=== PATIENT | male | born 1960 | race Caucasian/White ===

== ENCOUNTER 2018-09-15 08:26 | Outpatient (REF) | payer OTHER, SELFPAY ==
[2018-09-15 12:30] LABS: ALT 39 U/L (12-78); AST 29 U/L (15-37); Calculated LDL 117 mg/dL; Cholesterol 211 mg/dL (50-200); Glucose 100 mg/dL (70-100); HDL Cholesterol 74 mg/dL (40-60); Triglyceride 104 mg/dL (30-150)
[2018-09-15 12:45] LABS: Creatine Kinase 142 U/L (39-308)
== END 2018-09-15 08:46 ==
LOC: NCHCN 08:26
PROVIDERS: PCP Nurse Practitioner Family; Visit Provider Nurse Practitioner Family
DX: Z00.00 Encounter for general adult medical examination without abnormal findings (principal); E78.5 Hyperlipidemia, unspecified; I10 Essential (primary) hypertension; R73.03 Prediabetes; L30.9 Dermatitis, unspecified
CPT/HCPCS: 80061; 82550; 82947; 83721; 84450; 84460

== ENCOUNTER 2019-01-27 08:39 | Outpatient (REF) | payer OTHER, SELFPAY ==
[2019-01-27 20:58] LABS: ALT 39 U/L (16-63); AST 23 U/L (15-37); Anion Gap 8.6 mmol/L (3-11); BUN 13 mg/dL (7-18); CO2 29.4 mmol/L (21.0-32.0); CREATININE 0.69 mg/dL (0.70-1.30); Chloride 100 mmol/L (98-107); Glucose 99 mg/dL (70-100); HDL Cholesterol 70 mg/dL (40-60); LDL CHOLESTEROL 93 mg/dL (<100); Potassium 3.8 mmol/L (3.5-5.1); Sodium 138 mmol/L (136-145)
[2019-01-27 21:25] LABS: Creatine Kinase 163 U/L (39-308)
== END 2019-01-27 08:59 ==
LOC: NCHCN 08:39
PROVIDERS: PCP Nurse Practitioner Family; Visit Provider Nurse Practitioner Family
DX: I10 Essential (primary) hypertension (principal)
CPT/HCPCS: 80048; 82550; 83721; 83718; 84450; 84460

== ENCOUNTER 2019-10-25 08:57 | Outpatient (RCR) | payer OTHER, SELFPAY | END 2019-11-14 23:59 | disposition home or self-care (01) | LOC: INF 08:57 | PROVIDERS: PCP Nurse Practitioner Family; Visit Provider Internal Medicine | DX: C79.19 Secondary malignant neoplasm of other urinary organs (principal); Z45.2 Encounter for adjustment and management of vascular access device ==

== ENCOUNTER 2020-01-18 08:28 | Outpatient (REF) | payer OTHER, SELFPAY ==
[2020-01-18 21:19] LABS: ALT 31 U/L (16-63); AST 24 U/L (15-37); Anion Gap 10.2 mmol/L (3-11); BUN 12 mg/dL (7-18); CO2 26.8 mmol/L (21.0-32.0); CREATININE 0.79 mg/dL (0.70-1.30); Calcium 9.2 mg/dL (8.5-10.1); Calculated LDL 110 mg/dL (<100); Chloride 99 mmol/L (98-107); Cholesterol 206 mg/dL (<200); Glucose 107 mg/dL (74-106); HDL Cholesterol 78 mg/dL (40-60); Potassium 3.6 mmol/L (3.5-5.1); Sodium 136 mmol/L (136-145); Triglyceride 93 mg/dL (<150)
[2020-01-18 21:35] LABS: Creatine Kinase 172 U/L (39-308)
== END 2020-01-18 08:48 ==
LOC: NCHCN 08:28
PROVIDERS: PCP Nurse Practitioner Family; Visit Provider Nurse Practitioner Family
DX: Z00.00 Encounter for general adult medical examination without abnormal findings (principal)
CPT/HCPCS: 80048; 80061; 82550; 84450; 84460

== ENCOUNTER 2021-02-25 08:30 | Outpatient (REF) | payer OTHER, SELFPAY ==
[2021-02-25 18:45] LABS: Anion Gap 7.7 mmol/L (3-11); BUN 15 mg/dL (7-18); CO2 29.3 mmol/L (21.0-32.0); CREATININE 0.8 mg/dL (0.70-1.30); Calcium 9.3 mg/dL (8.5-10.1); Calculated LDL 107 mg/dL (<100); Chloride 100 mmol/L (98-107); Cholesterol 197 mg/dL (<200); Glucose 109 mg/dL (74-106); HDL Cholesterol 73 mg/dL (40-60); Potassium 3.9 mmol/L (3.5-5.1); Sodium 137 mmol/L (136-145); Triglyceride 88 mg/dL (<150)
== END 2021-02-25 08:31 | disposition home or self-care (01) ==
LOC: NCHCN 08:30
PROVIDERS: PCP Nurse Practitioner Family; Visit Provider Nurse Practitioner Family
DX: I10 Essential (primary) hypertension (principal); E78.5 Hyperlipidemia, unspecified
CPT/HCPCS: 80048; 80061

== ENCOUNTER 2022-03-03 14:01 | Outpatient (REF) | payer OTHER, SELFPAY ==
[2022-03-03 16:53] LABS: Hemoglobin A1C 6.1 % (<5.7)
[2022-03-03 16:59] LABS: ALT 30 U/L (16-63); AST 23 U/L (15-37); Albumin 4.2 g/dL (3.4-5.0); Alkaline Phosphatase 44 U/L (46-116); BUN 16 mg/dL (7-18); Bilirubin, Total 0.5 mg/dL (0.2-1.0); CREATININE 0.7 mg/dL (0.70-1.30); Calcium 9.7 mg/dL (8.5-10.1); Chloride 101 mmol/L (98-107); Estimated GFR 106.14 (mL/min/1.73m2); Glucose 119 mg/dL (74-106); HDL Cholesterol 88 mg/dL (40-60); LDL CHOLESTEROL 106 mg/dL (<100); Potassium 4.4 mmol/L (3.5-5.1); Sodium 138 mmol/L (136-145); Total Protein 7.8 g/dL (6.4-8.2)
[2022-03-03 17:14] LABS: Anion Gap 7.3 mmol/L (3-11); CO2 29.7 mmol/L (21.0-32.0); Creatine Kinase 180 U/L (39-308)
== END 2022-03-03 14:02 | disposition home or self-care (01) ==
LOC: NCHCN 14:01
PROVIDERS: PCP Nurse Practitioner Family; Visit Provider Nurse Practitioner Family
DX: I10 Essential (primary) hypertension (principal); R73.03 Prediabetes; E78.5 Hyperlipidemia, unspecified; Z00.00 Encounter for general adult medical examination without abnormal findings
CPT/HCPCS: 80053; 82550; 83721; 83036; 83718

== ENCOUNTER 2023-03-02 11:40 | Outpatient (REF) | payer OTHER, SELFPAY ==
[2023-03-02 16:30] LABS: AST 19 U/L (15-37); Albumin 3.5 g/dL (3.4-5.0); Alkaline Phosphatase 48 U/L (46-116); BUN 10 mg/dL (7-18); Calcium 9.6 mg/dL (8.5-10.1); Chloride 100 mmol/L (98-107); Glucose 130 mg/dL (74-106); HDL Cholesterol 80 mg/dL (40-60); Potassium 4.1 mmol/L (3.5-5.1); Sodium 136 mmol/L (136-145); Total Protein 8.7 g/dL (6.4-8.2)
[2023-03-02 17:20] LABS: ALT 23 U/L (16-63); Bilirubin, Total 0.4 mg/dL (0.2-1.0); CREATININE 0.8 mg/dL (0.70-1.30); Estimated GFR 101.32 (mL/min/1.73m2); LDL CHOLESTEROL 107 mg/dL (<100)
[2023-03-02 17:44] LABS: Creatine Kinase 126 U/L (39-308)
== END 2023-03-02 11:41 | disposition home or self-care (01) ==
LOC: NCHCN 11:40
PROVIDERS: PCP Nurse Practitioner Family; Visit Provider Nurse Practitioner Family
DX: I10 Essential (primary) hypertension (principal); E78.5 Hyperlipidemia, unspecified
CPT/HCPCS: 80053; 82550; 83721; 83718

== ENCOUNTER 2023-03-18 15:37 | Outpatient (REF) | payer OTHER, SELFPAY ==
[2023-03-18 20:26] LABS: Hemoglobin A1C 6.1 % (<5.7)
== END 2023-03-18 15:38 | disposition home or self-care (01) ==
LOC: NCHCN 15:37
PROVIDERS: PCP Nurse Practitioner Family; Visit Provider Nurse Practitioner Family
DX: R73.03 Prediabetes (principal)
CPT/HCPCS: 83036

== ENCOUNTER 2023-10-05 08:56 | Outpatient (REF) | payer OTHER, SELFPAY ==
[2023-10-05 18:11] LABS: Hemoglobin A1C 6.2 % (<5.7)
[2023-10-06 18:57] LABS: PSA, Screening 0.3 ng/mL (<=4.5)
== END 2023-10-05 08:57 | disposition home or self-care (01) ==
LOC: NCHCN 08:56
PROVIDERS: PCP Physician Assistant Medical; Visit Provider Physician Assistant Medical
DX: R73.03 Prediabetes (principal); Z12.5 Encounter for screening for malignant neoplasm of prostate
CPT/HCPCS: 84153; 83036

== ENCOUNTER 2024-04-11 10:41 | Outpatient (REF) | payer OTHER, SELFPAY ==
[2024-04-11 16:47] LABS: Hemoglobin A1C 6.1 % (<5.7)
[2024-04-11 17:47] LABS: ALT 35 U/L (16-63); AST 21 U/L (15-37); Albumin 3.9 g/dL (3.4-5.0); Alkaline Phosphatase 45 U/L (46-116); Anion Gap 7.6 mmol/L (3-11); BUN 12 mg/dL (7-18); Bilirubin, Total 0.34 mg/dL (0.2-1.0); CO2 29.4 mmol/L (21.0-32.0); CREATININE 0.8 mg/dL (0.70-1.30); Calcium 9.9 mg/dL (8.5-10.1); Calculated LDL 89 mg/dL (<100); Chloride 103 mmol/L (98-107); Cholesterol 194 mg/dL (<200); Estimated GFR 100.06 (mL/min/1.73m2); Glucose 119 mg/dL (74-106); HDL Cholesterol 94 mg/dL (40-60); Potassium 4.2 mmol/L (3.5-5.1); Sodium 140 mmol/L (136-145); Total Protein 8.1 g/dL (6.4-8.2); Triglyceride 57 mg/dL (<150)
== END 2024-04-11 10:42 | disposition home or self-care (01) ==
LOC: NCHCN 10:41
PROVIDERS: PCP Physician Assistant Medical; Visit Provider Physician Assistant Medical
DX: E78.5 Hyperlipidemia, unspecified (principal); R73.03 Prediabetes
CPT/HCPCS: 80053; 80061; 83036

== ENCOUNTER 2024-07-05 18:12 | Inpatient (IN) | payer OTHER, SELFPAY ==
[2024-07-05 18:16] VITALS: BP 151/84; PULSE 98; RESP 18; TEMP 36.7; O2SAT 99
--- NOTE | 2024-07-05 19:30 | DI.CT_ITS ---
Exam(s) CT NECK CHEST W EXAM: CT NECK CHEST W CLINICAL HISTORY: esophageal food bolus TECHNIQUE: Imaging Protocol: Axial computed tomography images with coronal and sagittal reformatted images were created and reviewed. Computer aided detection (CAD) was utilized. CONTRAST MATERIAL: Intravenous: Omnipaque 350Contrast volume:100 mL. COMPARISON: No exams were available for comparison FINDINGS: Visualized intracranial structures: Within normal limits. Orbits and orbital soft tissues: Within normal limits. Visualized paranasal sinuses: There is mucosal thickening in the right maxillary sinus. There is al so thickening of the sheth of the right maxillary sinus. The findings are most suggestive of chronic sinusitis. The mastoid air cells are clear. The remaining visualized paranasal sinuses are clear. Pharynx: Within normal limits. Larynx: Within normal limits. Retropharyngeal space: Within normal limits. Parotids/submandibular: Within normal limits. Thyroid gland: Within normal limits. Lymphadenopathy: There is scattered lymph nodes seen along the level one to level three all measurin g less than 8 mm in short axis diameter which are physiologic in nature. Trachea: Within normal limits. Bones: Within normal limits for the patient's age. There is mild reversal of the normal cervical lord osis. Moderately severe degenerative changes are seen in the cervical spine. Carotids/Jugular: Within normal limits. Soft tissues: Within normal limits. Tracheobronchial tree: Patent where visualized. No evidence of bronchiectasis. No foreign bodies are seen in the airways. Pulmonary parenchyma: No consolidation or dominant measurable mass. No architectural distortion. Mild atelectasis is seen in the lungs. Mediastinum and Jojo: No dominant adenopathy or fluid collection. There may be some debris seen in th e distal esophagus. There is an air-fluid level present to the level of the thoracic inlet and aspir ation should be monitored. Thyroid gland: Unremarkable. Pleura: No effusion or pneumothorax. Heart: The heart is not dilated. Two vessel coronary artery calcification is present. No pericardial effusion. Aorta: Thoracic aorta non-dilated. Atherosclerotic calcification is present. Pulmonary arteries: Within the limits of the examination, no central pulmonary embolism is present. Upper abdomen: Unremarkable. Lymph nodes: Within normal limits. Bones: Within normal limits for the patient's age. Soft tissues: Unremarkable. IMPRESSION: 1. There does appear to be soft tissue debris in the distal esophagus suspicious for food bolus. 2. There is a fluid level in the esophagus to the level of the thoracic inlet and aspiration should b e monitored. 3. Findings of chronic sinusitis in the right maxillary sinus. 4. The preliminary [facility] report was reviewed. RADIATION DOSE DELIVERED: 394.18mGy.cm Total DLP !Error Total DLP DATA REPOSITORY: All CT scans at this facility are submitted to the National Radiology Data Registry (NRDR) Dose Index Registry (DIR) with the [employer] (ACR). RADIATION OPTIMIZATION: All CT scans at this facility use at least one of these dose optimization te chniques: automated exposure control; mA and/or kV adjustment per patient size (includes targeted exa ms where dose is matched to clinical indication); or iterative reconstruction.
[2024-07-05] MEDS: Glucagon 1 MG VIAL IVP (19:57)
[2024-07-05] MEDS: Simethicone/Sod Bicarb/Cit Ac, 4 gram PACKET 1 PACKET PO (19:57)
[2024-07-05 20:08] LABS: Abs Immature Grans 0.05 10^3/uL (0.0-0.06); Absolute Basophil Count 0.07 10^3/uL (0.0-0.2); Absolute Eosinophil Count 0.14 10^3/uL (0.0-0.7); Absolute Lymphocyte Count 1.24 10^3/uL (1.2-3.4); Absolute Monocyte Count 0.72 10^3/uL (0.1-0.8); Absolute Neutrophil Count 8.26 10^3/uL (1.2-6.7); Basophils % 0.7 %; Eosinophils % 1.3 %; HCT 40.1 % (40.0-50.0); HGB 13.8 g/dL (13.5-17.5); Immature Grans % 0.5 %; Lymphocytes % 11.8 %; MCH 30.7 pg (27.0-33.0); MCHC 34.4 % (32.0-36.0); MCV 89 fL (80-95); MPV 8.5 fL (8.0-11.0); Monocytes % 6.9 %; Neutrophils % 78.8 %; Platelet Count 267 10^3/uL (130-400); RBC 4.49 10^6/uL (4.36-5.78); RDW 11.8 % (11.8-14.1); RDW-SD 38.4 fL; WBC 10.48 10^3/uL (4.4-10.8)
[2024-07-05 20:26] LABS: ALT 32 U/L (16-63); AST 26 U/L (15-37); Albumin 4.2 g/dL (3.4-5.0); Alkaline Phosphatase 49 U/L (46-116); Anion Gap 8.7 mmol/L (3-11); BUN 10 mg/dL (7-18); Bilirubin, Total 0.6 mg/dL (0.2-1.0); CO2 27.3 mmol/L (21.0-32.0); CREATININE 0.8 mg/dL (0.70-1.30); Calcium 9.8 mg/dL (8.5-10.1); Chloride 101 mmol/L (98-107); Estimated GFR 100.06 (mL/min/1.73m2); Glucose 133 mg/dL (74-106); Potassium 3.2 mmol/L (3.5-5.1); Sodium 137 mmol/L (136-145); Total Protein 8.4 g/dL (6.4-8.2)
--- NOTE | 2024-07-05 21:00 | ED.GENADUL_ITS ---
Discharge Plan Disposition Patient Disposition: Admit to [facility] Condition: Stable Discharge Details Clinical Impression: Esophageal obstruction due to food impaction Primary Care Provider: Tony Jerez ED Provider: Ariel Cr Home Meds and New Rx's Prescriptions: No Action hydrochlorothiazide 50 MG tablet 0.5 tab PO DAILY simvastatin 10 MG tablet 10 mg PO DAILY triamcinolone acetonide 15 GM cream 0 gm Topical DIRECTED PRN lisinopril 10 MG tablet 10 mg PO DAILY hydrocodone-acetaminophen 1 EACH tablet 1 ea PO QID PRN PRN (Reason: Pain) Qty: 10 0RF HPI General Date/Time Provider Initiated Documentation: 07/05/24 18:50 . HPI Narrative: 64 year-old male presents to ED today by POV/ambulating with his with a chief complaint of esophageal food bolus, from his supper of chicken around 1630, has had prior episodes. Quality described as feels like he cannot swallow, was able to get a couple intermittent small sips of water down, but now is spitting everything back up, no radiation to cough, fever, chest pain, syncope, dizziness, hematemesis, coffee-ground emesis, abdominal pain, diarrhea. Severity is described as moderate. Palliating factors include tried Coca-Cola in the waiting room, no relief. Provoking factors include PO intake. Events leading up to the incident/Associated Symptoms: Patient is unsure if he has stricture or esophageal motility disorder. Patient not anticoagulated. Related Data Home Medications ?Medication ?Instructions ?Recorded ?Confirmed hydrochlorothiazide 50 mg tablet 0.5 tab PO DAILY 07/31/16 07/05/24 hydrocodone 5 mg-acetaminophen 325 1 ea PO QID PRN PRN Pain ##10 07/31/16 07/05/24 mg tablet lisinopril 10 mg tablet 10 mg PO DAILY 07/31/16 07/05/24 simvastatin 10 mg tablet 10 mg PO DAILY 07/31/16 07/05/24 triamcinolone acetonide 0.1 % 0 gm topical DIRECTED PRN 07/31/16 07/05/24 topical cream Previous Rx's ?Medication ?Instructions ?Recorded hydrocodone 5 mg-acetaminophen 325 1 ea PO QID PRN PRN Pain ##10 07/31/16 mg tablet Allergies Allergy/AdvReac Type Severity Reaction Status Date / Time Penicillins AdvReac Mild Skin Rash Unverified 07/05/24 18:17 General Stated Complaint: ForeignBody ALFONSO: 3 Review of Systems All systems reviewed & are unremarkable except as noted in HPI and below Exam Narrative Exam Narrative: GENERAL APPEARANCE: Well-nourished, non-toxic, awake and alert, atraumatic, no acute distress. SKIN: Warm, pink, dry, intact, without rashes/lesions/ulcerations. HEAD: Normocephalic, atraumatic, normal hair distribution for gender/age. EYES: Normal conjunctiva, no exudates on lids/lashes. ENT: Nares patent, no circumoral cyanosis, no facial swelling NECK: Supple, trachea midline, painless cervical ROM. LUNGS/CHEST: Lungs CTA bilaterally-no rhonchi/rales/wheezes diffusely, non- labored respirations, normal A/P diameter, symmetrical expansion, no chest wall deformity HEART (CV/PV): Regular rate and rhythm without murmur, no peripheral edema, no JVD. ABDOMEN: Soft, non-distended, no guarding, no tenderness. MSK: Normal ROM, no swelling/deformity to bilateral UEs or LEs, moving all extremities without weakness, no cyanosis, spine midline without tenderness, normal curvature. NEURO: Mental Status AAOx4 - alert to person, place, time, events No facial droop, no forehead involvement. Motor: No focal weakness - strength 5/5 in bilateral UEs and LEs, proximal and distal, symmetric. Sensory: sensation intact to light touch globally. Gait normal: patient ambulated without ataxia into ED room. PSYCH: euthymic, cooperative, pleasant, appropriate speech Course Vital Signs Vital signs: Vital Signs Temperature 36.7 C 07/05/24 18:16 Pulse 98 H 07/05/24 18:16 Respiratory Rate 18 07/05/24 18:16 Blood Pressure 151/84 H 07/05/24 18:16 Pulse Oximetry 99 07/05/24 18:16 Temperature 36.7 C 07/05/24 18:16 Pulse 98 H 07/05/24 18:16 Respiratory Rate 18 07/05/24 18:16 Respiratory Effort Normal, Non-Labored 07/05/24 20:38 Respiratory Pattern Normal 07/05/24 20:38 Blood Pressure 151/84 H 07/05/24 18:16 Pulse Oximetry 99 07/05/24 18:16 Lab/Test Results Lab/Test Results: Laboratory Tests Range/Units 07/05/24 19:57 WBC (4.4-10.8) 10^3/uL 10.48 RBC (4.36-5.78) 10^6/uL 4.49 Hgb (13.5-17.5) g/dL 13.8 Hct (40.0-50.0) % 40.1 MCV (80-95) fL 89 MCH (27.0-33.0) pg 30.7 MCHC (32.0-36.0) % 34.4 RDW (11.8-14.1) % 11.8 Plt Count (130-400) 10^3/uL 267 MPV (8.0-11.0) fL 8.5 Immature Gran % % 0.5 Neutrophils % % 78.8 Lymphocytes % % 11.8 Monocytes % % 6.9 Eosinophils % % 1.3 Basophils % % 0.7 Nucleated RBC % (0.0-0.3) % 0.0 Absolute Neutrophils (1.2-6.7) 10^3/uL 8.26 H Absolute Lymphocytes (1.2-3.4) 10^3/uL 1.24 Absolute Monocytes (0.1-0.8) 10^3/uL 0.72 Absolute Eosinophils (0.0-0.7) 10^3/uL 0.14 Absolute Basophils (0.0-0.2) 10^3/uL 0.07 Sodium (136-145) mmol/L 137 Potassium (3.5-5.1) mmol/L 3.2 L Chloride (98-107) mmol/L 101 Carbon Dioxide (21.0-32.0) mmol/L 27.3 Anion Gap (3-11) mmol/L 8.7 BUN (7-18) mg/dL 10 Creatinine (0.70-1.30) mg/dL 0.8 Est GFR (CKD-EPI 2020) (mL/min/1.73m2) 100.06 Glucose (74-106) mg/dL 133 H Calcium (8.5-10.1) mg/dL 9.8 Total Bilirubin (0.2-1.0) mg/dL 0.6 AST (15-37) U/L 26 ALT (16-63) U/L 32 Alkaline Phosphatase (46-116) U/L 49 Total Protein (6.4-8.2) g/dL 8.4 H Albumin (3.4-5.0) g/dL 4.2 Medical Decision Making This dictation utilizes [id number] dictation software and may contain unedited grammatical errors. 64 year-old male presents to ED today by POV/ambulating with his with a chief complaint of esophageal food bolus, from his supper of chicken around 1630, has had prior episodes. Quality described as feels like he cannot swallow, was able to get a couple intermittent small sips of water down, but now is spitting everything back up, no radiation to cough, fever, chest pain, syncope, dizziness, hematemesis, coffee-ground emesis, abdominal pain, diarrhea. Severity is described as moderate. Palliating factors include tried Coca-Cola in the waiting room, no relief. Provoking factors include PO intake. Events leading up to the incident/Associated Symptoms: Patient is unsure if he has stricture or esophageal motility disorder. Patients' medical history: Hyperlipidemia, hypertension, dental caries, prediabetes, amputated finger. Family and social history: Lives at home with , eats normal diet. Pertinent exam findings / vital signs include Lungs CTA, no respiratory distress, stable vitals, benign cardiac exam, cannot tolerate PO. Differential / pathologies of concern include esophageal food bolus, esophageal stricture, malignancy, gastritis. Diagnostic studies of: -CBC, CMP, CT Neck & Chest w/ Contrast. - CBC and CMP benign - CT shows distal esophageal food bolus obstruction Interventions of: - Attempted Coca-Cola, p.o. EZ gas granules, IV 1 mg glucagon without relief, likely needs consult with surgery for endoscopy. ED Course/Assessment/Plan: 64-year-old male presents with recurrent esophageal food bolus but has been able to get it to clear in the past, failed attempts here with Coca-Cola to dissolve the bolus as well as IV glucagon. CT shows significant distal esophagus food bolus that is fully obstructing, patient has not been able to tolerate p.o. intake for hours here, likely needs endoscopy only, reasonable for surgical abdomen, hospitalist declined as there is no intervention hospital medicine needs to make. Dr. Tamez accepted for admission @ 2234, patient is resting comfortably but unable to tolerate p.o. intake here in the ED. Findings not consistent with intractable nausea or vomiting, hematemesis, Denisa-Kumar tear, Boerhaave syndrome. Disposition of Esophageal Obstruction due to Food Impaction. Patient verbalized understanding of the plan and return to ED criteria and engaged in shared decision making. Medical Records Medical records reviewed: Yes I reviewed the patient's medical records. Imaging Data Radiologic Study: Attestation: I personally reviewed and interpreted this imaging study as follows: Imaging: CT Scan Radiologist's impression: Exam: CT Neck With Contrast Exam date and time: 07/05/2024 9:11 PM Age: 64 years old Clinical indication: Other: Esophageal food bolus TECHNIQUE: Imaging protocol: Computed tomography of the neck with contrast. 3D rendering (Not supervised by radiologist): MIP and/or 3D reconstructed images were created by the technologist. Contrast material: OMNI 350; Contrast volume: 100 ml; Contrast route: INTRAVENOUS (IV); COMPARISON: No relevant prior studies available. FINDINGS: Salivary glands: Normal. Glands are normal in size. Pharynx: Unremarkable. No significant tonsillar enlargement. Larynx: Unremarkable. Epiglottis is normal. Thyroid: Normal. No enlarged or calcified nodules. Trachea: Visualized trachea is unremarkable. Lungs: Unremarkable as visualized. Esophagus: Air debris level in minimally dilated proximal thoracic esophagus. Lymph nodes: Unremarkable. No lymphadenopathy. Bones/joints: Degenerative changes of cervical spine. Soft tissues: Unremarkable. IMPRESSION: Air debris level in minimally dilated proximal thoracic esophagus. PROCEDURE INFORMATION: Exam: CT Chest With Contrast; Diagnostic Exam date and time: 07/05/2024 9:11 PM Age: 64 years old Clinical indication: Other: Esophageal food bolus TECHNIQUE: Imaging protocol: Diagnostic computed tomography of the chest with contrast. 3D rendering (Not supervised by radiologist): MIP and/or 3D reconstructed images were created by the technologist. Contrast material: OMNI 350; Contrast volume: 100 ml; Contrast route: INTRAVENOUS (IV); COMPARISON: No relevant prior studies available. FINDINGS: Lungs: Unremarkable. No consolidation. No masses. Pleural spaces: Unremarkable. No pneumothorax. No pleural effusion. Heart: Unremarkable. No cardiomegaly. No pericardial effusion. Coronary arteries: Coronary artery calcification Esophagus: Soft tissue attenuation measuring approximately 2 cm in diameter and 4 cm in length minimally distends distal thoracic esophagus, 9/45, 4/92-118. Air debris level is demonstrated more proximally in thoracic esophagus. Lymph nodes: Unremarkable. No enlarged lymph nodes. Vasculature: Unremarkable. No aortic aneurysm. Liver: There is diffuse decrease in hepatic parenchymal density, consistent with mild fatty infiltration. Bones/joints: The spine demonstrates mild degenerative changes at multiple levels. No acute fracture. Soft tissues: Unremarkable. IMPRESSION: 1. Soft tissue attenuation consistent with food bolus in distal esophagus. 2. Coronary artery disease. Dictated and Authenticated by: Fidel Rodrigez MD. Lab Data Lab results reviewed: Yes I reviewed the patient's lab results. Labs: Laboratory Tests Range/Units 07/05/24 19:57 WBC (4.4-10.8) 10^3/uL 10.48 RBC (4.36-5.78) 10^6/uL 4.49 Hgb (13.5-17.5) g/dL 13.8 Hct (40.0-50.0) % 40.1 MCV (80-95) fL 89 MCH (27.0-33.0) pg 30.7 MCHC (32.0-36.0) % 34.4 RDW (11.8-14.1) % 11.8 Plt Count (130-400) 10^3/uL 267 MPV (8.0-11.0) fL 8.5 Immature Gran % % 0.5 Neutrophils % % 78.8 Lymphocytes % % 11.8 Monocytes % % 6.9 Eosinophils % % 1.3 Basophils % % 0.7 Nucleated RBC % (0.0-0.3) % 0.0 Absolute Neutrophils (1.2-6.7) 10^3/uL 8.26 H Absolute Lymphocytes (1.2-3.4) 10^3/uL 1.24 Absolute Monocytes (0.1-0.8) 10^3/uL 0.72 Absolute Eosinophils (0.0-0.7) 10^3/uL 0.14 Absolute Basophils (0.0-0.2) 10^3/uL 0.07 Sodium (136-145) mmol/L 137 Potassium (3.5-5.1) mmol/L 3.2 L Chloride (98-107) mmol/L 101 Carbon Dioxide (21.0-32.0) mmol/L 27.3 Anion Gap (3-11) mmol/L 8.7 BUN (7-18) mg/dL 10 Creatinine (0.70-1.30) mg/dL 0.8 Est GFR (CKD-EPI 2020) (mL/min/1.73m2) 100.06 Glucose (74-106) mg/dL 133 H Calcium (8.5-10.1) mg/dL 9.8 Total Bilirubin (0.2-1.0) mg/dL 0.6 AST (15-37) U/L 26 ALT (16-63) U/L 32 Alkaline Phosphatase (46-116) U/L 49 Total Protein (6.4-8.2) g/dL 8.4 H Albumin (3.4-5.0) g/dL 4.2 Quality:[facility] Health Related Social Needs: No Data to Display PFSH All Active Problems (Updated 07/05/24 @ 22:02 by LUCY Antonio) Esophageal obstruction due to food impaction (Acute) Sensorineural hearing loss of both ears (Acute) Social History Smoking/Tobacco Use Status: Never Smoking risk assessment performed?: Yes Alcohol Intake: current Alcohol Intake frequency: a few times a week Drug use: Never Substance use type: does not use Do you feel safe at home: Yes Do you feel safe in your relationship?: Yes PAWSS Have you Been Recently Intoxicated or Drunk Within the Last 30 days?: No Have you Ever Experienced Previous Episodes of Alcohol Withdrawal?: No Have you ever Experienced Withdrawal Seizures?: No Have you ever Experienced Delirium Tremens(DT)s?: No Have you ever undergone Alcohol Rehabilitation Treatment (i.e, inpt ot outpatient treatment programs)?: No Have you ever Experienced Blackouts?: No Have you ever Combined Alcohol with other Downers within the last 90 days?: No Have you ever Combined Alcohol with any other Substance of Abuse during the last 90 days?: No Positive Blood Alcohol level on Presentation? [PCS.BAL]: No Evidence of Increased Autonomic Activity (i.e. HR>120, tremor, sweating, agitation, nausea)?: No Result: 0
[2024-07-05] MEDS: Omnipaque 350 MG/ML 100 ML BTL IJ (21:14)
[2024-07-05] MEDS: Normal Saline - Diluent 50 ML VIAL IJ (21:16)
--- NOTE | 2024-07-05 21:58 | DI.[facility]_ITS ---
PROCEDURE INFORMATION: Exam: CT Neck With Contrast Exam date and time: 07/05/2024 9:11 PM Age: 64 years old Clinical indication: Other: Esophageal food bolus TECHNIQUE: Imaging protocol: Computed tomography of the neck with contrast. 3D rendering (Not supervised by radiologist): MIP and/or 3D reconstructed images were created by the technologist. Contrast material: OMNI 350; Contrast volume: 100 ml; Contrast route: INTRAVENOUS (IV); COMPARISON: No relevant prior studies available. FINDINGS: Salivary glands: Normal. Glands are normal in size. Pharynx: Unremarkable. No significant tonsillar enlargement. Larynx: Unremarkable. Epiglottis is normal. Thyroid: Normal. No enlarged or calcified nodules. Trachea: Visualized trachea is unremarkable. Lungs: Unremarkable as visualized. Esophagus: Air debris level in minimally dilated proximal thoracic esophagus. Lymph nodes: Unremarkable. No lymphadenopathy. Bones/joints: Degenerative changes of cervical spine. Soft tissues: Unremarkable. IMPRESSION: Air debris level in minimally dilated proximal thoracic esophagus. PROCEDURE INFORMATION: Exam: CT Chest With Contrast; Diagnostic Exam date and time: 07/05/2024 9:11 PM Age: 64 years old Clinical indication: Other: Esophageal food bolus TECHNIQUE: Imaging protocol: Diagnostic computed tomography of the chest with contrast. 3D rendering (Not supervised by radiologist): MIP and/or 3D reconstructed images were created by the technologist. Contrast material: OMNI 350; Contrast volume: 100 ml; Contrast route: INTRAVENOUS (IV); COMPARISON: No relevant prior studies available. FINDINGS: Lungs: Unremarkable. No consolidation. No masses. Pleural spaces: Unremarkable. No pneumothorax. No pleural effusion. Heart: Unremarkable. No cardiomegaly. No pericardial effusion. Coronary arteries: Coronary artery calcification Esophagus: Soft tissue attenuation measuring approximately 2 cm in diameter and 4 cm in length minimally distends distal thoracic esophagus, /45, 92-118. Air debris level is demonstrated more proximally in thoracic esophagus. Lymph nodes: Unremarkable. No enlarged lymph nodes. Vasculature: Unremarkable. No aortic aneurysm. Liver: There is diffuse decrease in hepatic parenchymal density, consistent with mild fatty infiltration. Bones/joints: The spine demonstrates mild degenerative changes at multiple levels. No acute fracture. Soft tissues: Unremarkable. IMPRESSION: 1. Soft tissue attenuation consistent with food bolus in distal esophagus. 2. Coronary artery disease. Dictated and Authenticated by: Fidel Rodrigez MD. Orderin Shaye George MD
[2024-07-06 00:37] VITALS: BP 153/90; PULSE 89; RESP 20; TEMP 36.6; O2SAT 99
[2024-07-06 00:50] VITALS: BP 133/95; PULSE 89; RESP 16; TEMP 36.5; O2SAT 98
[2024-07-06 00:55] VITALS: BP 133/95; PULSE 89; RESP 16; TEMP 36.5; O2SAT 98
[2024-07-06] MEDS: Normal Saline 1,000 ML 75 ML IV (01:10)
--- NOTE | 2024-07-06 01:58 | W.PC.ACHO ---
Registration Status: Primary Language: Preferred Language: ED Information & Data Chief Complaint ForeignBody 07/05/24 21:00 Triage Note Patient complaining of a 07/05/24 18:16 piece of chicken caught in his throat. Patient able to swallow a small amount of water Most Recent Vital Signs Temperature 36.5 C 07/06/24 00:55 Pulse 89 07/06/24 00:55 Pulse Rhythm Regular 07/06/24 00:55 Respiratory Rate 16 07/06/24 00:55 Respiratory Effort Normal, Non-Labored 07/06/24 00:55 Respiratory Depth Normal 07/06/24 00:55 Respiratory Pattern Normal 07/06/24 00:55 Blood Pressure 133/95 H 07/06/24 00:55 Pulse Oximetry 98 07/06/24 00:55 Oxygen Delivery Method Room Air 07/06/24 00:55 Oxygen Flow Rate 0 07/06/24 00:55 Pain Level 0 07/06/24 00:50 Comment map of 108 07/06/24 00:55 Allergies Penicillins Adverse Reaction (Mild, Unverified 07/05/24 18:17) Skin Rash Precautions Isolation Standard precaution 07/05/24 18:19 Active Medications Generic Name Dose Route Start Last Admin Trade Name Freq PRN Reason Stop Dose Admin Sodium Chloride 1,000 mls @ 75 mls/hr 07/05/24 23:45 07/06/24 01:10 Saline 1000ml Bag IV 75 mls/hr INFUSION STAR Administration Iohexol 100 ml 07/05/24 21:15 07/05/24 21:14 Omnipaque 350 Mg/Ml 100 Ml Btl IJ 08/04/24 23:59 100 ml DIRECTED STAR Administration Sodium Chloride 50 ml 07/05/24 21:30 07/05/24 21:16 Normal Saline - Diluent 50 Ml Vial IJ 50 ml .FOR DI USE STAR Administration IV IV Catheter Type [Right Peripheral IV Antecubital] IV Catheter Gauge [Right 18 Antecubital] Diet Orders Category Date Time Status Nothing Per Oral [DIET] Nutrition 07/05/24 Dinner Active Diagnostics 07/05/24 Range/Units 19:57 WBC 10.48 (4.4-10.8) 10^3/uL RBC 4.49 (4.36-5.78) 10^6/uL Hgb 13.8 (13.5-17.5) g/dL Hct 40.1 (40.0-50.0) % MCV 89 (80-95) fL MCH 30.7 (27.0-33.0) pg MCHC 34.4 (32.0-36.0) % RDW 11.8 (11.8-14.1) % Plt Count 267 (130-400) 10^3/uL MPV 8.5 (8.0-11.0) fL Immature Gran % 0.5 % Neutrophils % 78.8 % Lymphocytes % 11.8 % Monocytes % 6.9 % Eosinophils % 1.3 % Basophils % 0.7 % Nucleated RBC % 0.0 (0.0-0.3) % Absolute Neutrophils 8.26 H (1.2-6.7) 10^3/uL Absolute Lymphocytes 1.24 (1.2-3.4) 10^3/uL Absolute Monocytes 0.72 (0.1-0.8) 10^3/uL Absolute Eosinophils 0.14 (0.0-0.7) 10^3/uL Absolute Basophils 0.07 (0.0-0.2) 10^3/uL Sodium 137 (136-145) mmol/L Potassium 3.2 L (3.5-5.1) mmol/L Chloride 101 (98-107) mmol/L Carbon Dioxide 27.3 (21.0-32.0) mmol/L Anion Gap 8.7 (3-11) mmol/L BUN 10 (7-18) mg/dL Creatinine 0.8 (0.70-1.30) mg/dL Est GFR (CKD-EPI 2020) 100.06 (mL/min/1.73m2) Glucose 133 H (74-106) mg/dL Calcium 9.8 (8.5-10.1) mg/dL Total Bilirubin 0.6 (0.2-1.0) mg/dL AST 26 (15-37) U/L ALT 32 (16-63) U/L Alkaline Phosphatase 49 (46-116) U/L Total Protein 8.4 H (6.4-8.2) g/dL Albumin 4.2 (3.4-5.0) g/dL Intake and Output - 24 Hour Total 07/05/24 18:12 thru 07/06/24 01:10 Intake Total 10 Balance 10 Weight 69.853 kg Intake: IV 10 Falls Risk Assessment History of Falls No History 07/06/24 00:55 Contributing Factors No Factors,Impairments 07/06/24 00:55 Ambulatory Aids Independent 07/06/24 00:55 Tubes/Lines W/no contributing factors 07/06/24 00:55 Gait Evaluation No gait disturbance 07/06/24 00:55 Cognition No cognitive impairment 07/06/24 00:55 Fall Total Score 13 07/06/24 00:55 Level of Risk Standard/Low Risk 07/06/24 00:55 v v v v v v v v v Sending and/or Receiving Nurses: Please use comment section below to note any information pertinent to the patient hand-off not included above. Information / Comments: came in earlier in the day for what felt like food stuck in throat. Per exam pt has CAD. Tried coca cola, EZ gas, and glucagon. nothing has worked. surgeon looked at him and accepted for a morning procedure. Pt currently smokes daily, hx of HTN. pt has been afebrile. other than stuck food, pt is benign. 18g RAC npo Report received from: saúl Grubbs. @ [phone]
--- NOTE | 2024-07-06 02:09 | NUR.NOTE ---
Nursing Note: pt rang around 0200 endorsing that the piece of chicken has dislodged itself. Pt stated I was dosing off and boom, I felt it move. It went down, I am sure of it. Pt insisted on trying a sip of water, endorsing that he will know right away if the piece of food is gone or not. Pt is NPO, so I consulted with the charge nurse. We agreed to let him try approx. 50cc of water. Pt took the first sip and stated that he is sure the food is gone because all other times he tried to drink it (fluid) came back up immediately pt drank remaining water, nothing came back up. Pt informed that he will not receive anymore water right now and to keep staff informed of any nausea or emesis. Pt stated that he understands, and is very excited about this development.
--- NOTE | 2024-07-06 06:52 | ANES.PREOP_ITS ---
General Info Date of Service Date Performed: 07/06/24 Height: 5 ft 5 in Weight: 69.853 kg Body Mass Index (BMI): 25.6 Surgical Procedure: Operation Date: 07/06/24 07:35 Proposed Procedure Side Surgeon p Gastroscopy/Removal Foreign Body Bong Tamez MD Meds Allergies and Home Medications Allergies Allergy/AdvReac Type Severity Reaction Status Date / Time Penicillins AdvReac Mild Skin Rash Unverified 07/05/24 18:17 Home Medication ?Medication ?Instructions ?Recorded hydrochlorothiazide 50 mg tablet 0.5 tab PO DAILY 07/31/16 hydrocodone 5 mg-acetaminophen 325 1 ea PO QID PRN PRN Pain ##10 07/31/16 mg tablet lisinopril 10 mg tablet 10 mg PO DAILY 07/31/16 simvastatin 10 mg tablet 10 mg PO DAILY 07/31/16 triamcinolone acetonide 0.1 % 0 gm topical DIRECTED PRN 07/31/16 topical cream Current Visit Medications: Current Medications Generic Name Dose Route Start Last Admin Trade Name Freq PRN Reason Stop Dose Admin Enoxaparin Sodium 40 mg 07/06/24 08:30 Enoxaparin 40 Mg/0.4 Ml Syr SC DAILY STAR Sodium Chloride 1,000 mls @ 75 mls/hr 07/05/24 23:45 07/06/24 01:10 Saline 1000ml Bag IV 75 mls/hr INFUSION STAR Administration IV Miscellaneous Supplies 1 each 07/05/24 23:45 Iv Access IV DIRECTED STAR Iohexol 100 ml 07/05/24 21:15 07/05/24 21:14 Omnipaque 350 Mg/Ml 100 Ml Btl IJ 08/04/24 23:59 100 ml DIRECTED STAR Administration Ondansetron HCl 4 mg 07/05/24 23:35 Ondansetron 4 Mg/2 Ml Vial IVP Q4H PRN PRN Sodium Chloride 50 ml 07/05/24 21:30 07/05/24 21:16 Normal Saline - Diluent 50 Ml Vial IJ 50 ml .FOR DI USE STAR Administration Sodium Chloride 0 ml 07/05/24 23:35 Normal Saline Flush 10 Ml Syr IVP PRN PRN Sodium Chloride 0 ml 07/06/24 08:30 Normal Saline Flush 10 Ml Syr IVP BID STAR Sodium Chloride 0 ml 07/05/24 23:35 Normal Saline 10 Ml Vial IJ DIRECTED PRN PFSH Active Problems Active Problems: Problem Status Onset Code Esophageal obstruction due to food impaction Acute T18.128A, [id number].F3XA Sensorineural hearing loss of both ears Acute H90.3 Tobacco Smoking/Tobacco Use Status: Never Alcohol Alcohol Intake: current Alcohol intake frequency: a few times a week Substance Use Substance use: Never Substance use type: does not use Vital Signs and Lab Results Vital Signs Most Recent Vital Signs in EMR: Most Recent Vital Signs Temp Pulse Resp BP Pulse Ox 36.5 C 89 16 133/95 H 98 07/06/24 00:55 07/06/24 00:55 07/06/24 00:55 07/06/24 00:55 07/06/24 00:55 Lab Results 07/05/24 19:57 07/05/24 19:57 Blood Type / Crossmatch: 2 No Data to Display Complete Blood Count: 2 White Blood Count 10.48 10^3/uL (4.4-10.8) 07/05/24 19:57 Red Blood Count 4.49 10^6/uL (4.36-5.78) 07/05/24 19:57 Hemoglobin 13.8 g/dL (13.5-17.5) 07/05/24 19:57 Hematocrit 40.1 % (40.0-50.0) 07/05/24 19:57 Platelet Count 267 10^3/uL (130-400) 07/05/24 19:57 Complete Metabolic Panel: 2 Sodium 137 mmol/L (136-145) 07/05/24 19:57 Potassium 3.2 mmol/L (3.5-5.1) L 07/05/24 19:57 Chloride 101 mmol/L (98-107) 07/05/24 19:57 Carbon Dioxide 27.3 mmol/L (21.0-32.0) 07/05/24 19:57 BUN 10 mg/dL (7-18) 07/05/24 19:57 Creatinine 0.8 mg/dL (0.70-1.30) 07/05/24 19:57 Est GFR (CKD-EPI 2020) 100.06 (mL/min/1.73m2) 07/05/24 19:57 Calcium 9.8 mg/dL (8.5-10.1) 07/05/24 19:57 Albumin 4.2 g/dL (3.4-5.0) 07/05/24 19:57 Glucose 133 mg/dL (74-106) H 07/05/24 19:57 Liver Function Panel: 2 Alanine Aminotransferase (ALT/SGPT) 32 U/L (16-63) 07/05/24 19: 57 Aspartate Amino Transf (AST/SGOT) 26 U/L (15-37) 07/05/24 19:57 Coagulation Panel: 2 No Data to Display Cardiac Panel: 2 No Data to Display Arterial Blood Gas: 2 No Data to Display Venous Blood Gas: 2 No Data to Display Pancreas Panel: 2 No Data to Display Thyroid Panel: 2 No Data to Display Infectious Disease: 2 No Data to Display Blood Cultures: 2 No Data to Display Toxicology Panel: 2 No Data to Display Anesthesia Assessment and Plan Anesthesia History Personal History: No History of Anesthesia Complications Family History: No Family History of Anesthesia Complications Exercise Tolerance Exercise Tolerance: Metabolic Equivalents>4 Pertinent Negatives Pertinent Negatives: No Symptoms of GERD, No Major Pulmonary Symptoms or Complaints and No History of CVA/TIA Cardiac & Pulmonary Exam Cardiac Exam: Normal S1/S2 Heart Sounds Pulmonary Exam: Clear Bilateral Breath Sounds Airway Exam Known Difficult Airway: No Mallampati Class: 2 Mouth Opening: Normal (> 3cm) Thyromental Distance: Greater than 3 cm Neck Range of Motion: Full ROM Neck Circumference: Normal Teeth Condition: Normal Dentition ASA Classification ASA Score: ASA 2 Emergency Case?: Yes NPO Status NPO Status: Full Stomach Anesthesia Plan Resuscitation Status: Full Code Anesthesia Technique: General Anesthesia Airway Planned: Endotracheal Tube Monitors Used: Standard Monitors
--- NOTE | 2024-07-06 07:20 | NUR.NOTE ---
Spoke with OR secretary bookkeeper, patient does not want EGD scope this AM, had 50cc of water overnight to attempt to pass food body in throat/esophagus, and was successful. Patient feels well this AM, no n/v and feels as though the food body has passed. Wants to go home. Nursing Note:
--- NOTE | 2024-07-06 07:30 | NUR.NOTE ---
MD Limon saw pt at bedside, forgoing EGD today, f/u outpatient with gen sx for EGD to check motility issues, verbal okay from for clear liquids, pt to d/c to home todayNursing Note:
[2024-07-06 07:37] VITALS: BP 130/88; PULSE 81; RESP 16; TEMP 36.4; O2SAT 98
--- NOTE | 2024-07-06 08:05 | W.PM.HP.N ---
Date of service: 07/06/24 Time of Service: 08:05 Assessment and Plan Assessment and plan (1) Esophageal obstruction due to food impaction: Status: Acute Assessment and plan: Patient passing esophageal food bolus this morning. Will start the patient on clear liquid diet. Plan for discharge home if he is able to tolerate liquids. Will send him home on some Protonix. Plan for outpatient follow-up with surgeon for elective EGD in the future. (2) Hypertension: Status: Chronic Assessment and plan: He will resume his home medications upon discharge. 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 He has had this sensation in the past, usually with some time the food will pass and the sensation of pressure will be relieved. He ate some chicken yesterday, he indicates that he was probably eating this too fast and swallowed a large piece of food. Earlier this morning, he felt the food bolus passed and the sensation pressure drastically decreased. Review of Systems All systems reviewed & are unremarkable except as noted in HPI and below PFSH All Active Problems (Updated 07/06/24 @ 08:26 by Bong Tamez MD) Hypertension (Chronic) Esophageal obstruction due to food impaction (Acute) Sensorineural hearing loss of both ears (Acute) Social History Smoking/Tobacco Use Status: Never Smoking risk assessment performed?: Yes Alcohol Intake: current Alcohol Intake frequency: a few times a week Drug use: Never Substance use type: does not use Housing: house Do you feel safe at home: Yes Do you feel safe in your relationship?: Yes Meds Allergies and Home Medications Allergies Allergy/AdvReac Type Severity Reaction Status Date / Time Penicillins AdvReac Mild Skin Rash Unverified 07/05/24 18:17 Home Medications ?Medication ?Instructions ?Recorded ?Confirmed ?Type hydrochlorothiazide 50 mg tablet 0.5 tab PO DAILY 07/31/16 07/05/24 History lisinopril 10 mg tablet 10 mg PO DAILY 07/31/16 07/05/24 History triamcinolone acetonide 0.1 % 0 gm topical DIRECTED PRN 07/31/16 07/05/24 History topical cream simvastatin 20 mg tablet 20 mg PO QPM 07/06/24 07/06/24 History Exam Narrative Exam Narrative: Patient pleasant adult male, awake and alert, in no discomfort, 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 His vital signs are normal. On examination of his abdomen, the abdomen is soft, nontender and nondistended, there are no prior surgical scars. Results Imaging Abdomen CT scan report/results: report reviewed, image reviewed (Reviewed patient's CT scan, this showing dilation of the esophagus along its entire tube. At the distal esophagus, there is some remnant food debris.) and other Labs 07/05/24 19:57 07/05/24 19:57 Labs: Laboratory Results - last 24 hr 07/05/24 19:57 WBC 10.48 RBC 4.49 Hgb 13.8 Hct 40.1 MCV 89 MCH 30.7 MCHC 34.4 RDW 11.8 Plt Count 267 MPV 8.5 Immature Gran % 0.5 Neutrophils % 78.8 Lymphocytes % 11.8 Monocytes % 6.9 Eosinophils % 1.3 Basophils % 0.7 Nucleated RBC % 0.0 Absolute Neutrophils 8.26 H Absolute Lymphocytes 1.24 Absolute Monocytes 0.72 Absolute Eosinophils 0.14 Absolute Basophils 0.07 Sodium 137 Potassium 3.2 L Chloride 101 Carbon Dioxide 27.3 Anion Gap 8.7 BUN 10 Creatinine 0.8 Est GFR (CKD-EPI 2020) 100.06 Glucose 133 H Calcium 9.8 Total Bilirubin 0.6 AST 26 ALT 32 Alkaline Phosphatase 49 Total Protein 8.4 H Albumin 4.2 Last Vital Signs Temp 36.4 C L 07/06/24 07:37 Pulse 81 07/06/24 07:37 Resp 16 07/06/24 07:37 BP 130/88 07/06/24 07:37 Pulse Ox 98 07/06/24 07:37 PAWSS Have you Been Recently Intoxicated or Drunk Within the Last 30 days?: No Have you Ever Experienced Previous Episodes of Alcohol Withdrawal?: No Have you ever Experienced Withdrawal Seizures?: No Have you ever Experienced Delirium Tremens(DT)s?: No Have you ever undergone Alcohol Rehabilitation Treatment (i.e, inpt ot outpatient treatment programs)?: No Have you ever Experienced Blackouts?: No Have you ever Combined Alcohol with other Downers within the last 90 days?: No Have you ever Combined Alcohol with any other Substance of Abuse during the last 90 days?: No Positive Blood Alcohol level on Presentation? [PCS.BAL]: No Evidence of Increased Autonomic Activity (i.e. HR>120, tremor, sweating, agitation, nausea)?: No Result: 0 Time Spent Time spent with Patient: <40 minutes Time was spent: preparing to see the patient(eg.review tests), obtaining and/or reviewing separately otained hiistory, referring, communicating with other health vp care management and indepentently interpreting results
--- NOTE | 2024-07-06 09:26 | PDOC.CMIN ---
Date of service: 07/06/24 Time of Service: 09:26 Care Management Initial Assmt Initial Assessment Reason for Hospitalization: food bolus in esophagus Functional Status/Living Situation Town of Residence: [facility] Resides with: Spouse ( Lori) Employment Status: Employed ([employer]) Instrumental Activities of Daily Living (ADLs): Independent Medications Medication Management: No Issues/Barriers identified Advance Directives Advance Directives: Do you have an Advance Directive: Y 07/05/24 18:42 AD On File at [facility]: Y 07/05/24 18:42 Date Asked 07/05/24 07/05/24 18:42 AD Date Reviewed 07/05/24 07/05/24 18:42 COLST On File at [facility] COLST Date Scanned Code Status Resuscitation Status Full Code Portal Pt does not currently have a portal and education provided: Yes Insurance Coverage/Financial Issues Insurance: [facility] Care Team Visit Care Team Role Provider Type LUCY Metcalf Primary Care Provider PHYSICIANS MARKETING PROGRAM COORDINATOR LUCY Antonio Emergency Provider PHYSICIANS MARKETING PROGRAM COORDINATOR Bong Tamez MD Admit Provider [facility] STAFF PHYSICIAN Attending Provider Discharge Potential Discharge Needs: PCP F/U Appt Anticipated Barriers to Discharge: None Identified Patient/Family Education Needs: Review discharge instructions, discuss Ask Me Three Transportation: Private vehicle Plan: Anticipate Srinivas will be discharged home with no new services when medically cleared. He will follow up with his PCP and plan of care and transport with family. CM will follow and continue to assess for discharge needs. Social Determinants of Health Screening Social Determinants of health last assessed in clinic: 07/06/24 Will the Patient Participate in the Screening?: Yes Do you worry about having a steady place to live?: no Problems where you live: no known problems In the past 12 months, have you had to go without electric, gas, oil or water in your home?: no Has lack of transportation kept you from medical appointments or from doing things needed for daily living?: no Has anyone in your life made you feel unsafe or unsupported?: no How hard is it for you to pay for the very basics like food, housing, medical care, and heating? Would you say it is:: Not hard at all Do you want help finding or keeping work or a job?: I do not need or want help If for any reason you need help with day-to-day activities such as bathing, preparing meals, shopping, managing finances, etc., do you get the help you need?: I don?t need any help How often do you feel lonely or isolated from those around you?: Never Do you speak a language other than Welsh at home?: No Does the patient want assistance with any of the above?: No PFSH All Active Problems (Updated 07/06/24 @ 08:26 by Bong Tamez MD) Hypertension (Chronic) Esophageal obstruction due to food impaction (Acute) Sensorineural hearing loss of both ears (Acute) Social History Smoking/Tobacco Use Status: Never Smoking risk assessment performed?: Yes Alcohol Intake: current Alcohol Intake frequency: a few times a week Drug use: Never Substance use type: does not use Housing: house Do you feel safe at home: Yes Do you feel safe in your relationship?: Yes
--- NOTE | 2024-07-06 11:09 | NUR.NOTE ---
patient Axox4 throughout shift, VSS, patient tolerated clear liquid diet this AM per Dr Tamez, no n/v or choking. Patient d/c'd to home today, f/u with gen sx 07/21/24 for possible EGD, follow ups and med regimen reviewed with pt at discharge, no new meds. Pt denies pain. PIV removed, all belongings and d/c paperwork with ptNursing Note:
--- NOTE | 2024-07-06 14:20 | W.PM.DS.N ---
Date of service: 07/06/24 Time of Service: 14:24 DS: Diagnosis Discharge Diagnosis (1) Esophageal obstruction due to food impaction: Status: Acute (2) Hypertension: Status: Chronic Discharge Plan Disposition Patient Disposition: Home Condition: Stable Discharge Details Reason For Visit: esophageal obstruction due to food bolus Admit Date/Time: 07/05/24 22:19 Admit Provider: Bong Tamez Attending Provider: Bong Tamez Primary Care Provider: Tony Jerez Hospital Course Hospital Course: Patient admitted overnight for suspected esophageal obstruction. He was planned for EGD this morning, the food bolus passed, and patient with relief of discomfort. Started on clear liquid diet, he is planned for discharge home today., Home Meds and New Rx's Prescriptions: New pantoprazole [Protonix] 40 mg tablet,delayed release (DR/EC) 40 mg PO DAILY Qty: 30 0RF Continued hydrochlorothiazide 50 MG tablet 0.5 tab PO DAILY triamcinolone acetonide 15 GM cream 0 gm Topical DIRECTED PRN lisinopril 10 MG tablet 10 mg PO DAILY simvastatin 20 mg tablet 20 mg PO QPM Patient Comments: TAKE ONE TABLET BY MOUTH AT BEDTIME Discharge Instructions Instructions: [facility] Stand Alone Forms: Nursing Discharge Form Referrals: Tony Jerez PA [Primary Care Provider] - (I called your PCP office & left a voicemail to have them give you a call to set up a follow up appointment for within 1 2 weeks. ) Henrik Aleman MD [ [facility] STAFF PHYSICIAN] - 07/21/24 1:15 pm (With Dr. Chao) Activity:: Activity as Tolerated Equipment/Supplies:: No Equipment Needed Diet:: Soft, moist foods, cut into small 1cm square pieces Discharge Orders Discharge Orders: Discharge Order (Routine); Ordered 07/06/24 Ordered By: Bogn Tamez Discharge Data Discharge Date/Time-TO BE ENTERED AT DEPARTURE: 07/06/24 11:08 DS: Summary Time Spent with Patient providing and/or coordinating discharge services: Less than 30 minutes Status at Discharge Functional status at discharge: independent ambulation Overall status at discharge: patient is back to baseline Mental Status: mental status grossly normal Speech and Movement: speech and movement normal Mood: congruent mood Affect: normal affect Quality:SDOH Health Related Social Needs: No Data to Display Exam Psych Mental Status: mental status grossly normal Speech and Movement: speech and movement normal Mood: congruent mood Affect: normal affect DS: Data Vitals/I&O Vitals and I&O: Vital Signs Temperature 36.4 C L 07/06/24 07:37 Temperature Source Temporal Artery Scan 07/06/24 07:37 Pulse 81 07/06/24 07:37 Pulse Rhythm Regular 07/06/24 00:55 Respiratory Rate 16 07/06/24 07:37 Respiratory Effort Normal, Non-Labored 07/06/24 00:55 Respiratory Depth Normal 07/06/24 00:55 Respiratory Pattern Normal 07/06/24 00:55 Blood Pressure 130/88 07/06/24 07:37 Pulse Oximetry 98 07/06/24 07:37 Oxygen Delivery Method Room Air 07/06/24 07:37 Oxygen Flow Rate 0 07/06/24 07:37 Pain Level 0 07/06/24 07:37 Comment map of 108 07/06/24 00:55 Intake & Output 07/05/24 07/06/24 07/06/24 23:59 11:59 23:59 Intake Total 540 / 540 Balance 540 / 540 Weight 72.121 kg 69.853 kg Intake: IV 10 / Oral 530 / 530 Data Completed and Pending Labs on day of discharge: Labs from last 24 hours 07/05/24 19:57 WBC 10.48 RBC 4.49 Hgb 13.8 Hct 40.1 MCV 89 MCH 30.7 MCHC 34.4 RDW 11.8 Plt Count 267 MPV 8.5 Immature Gran % 0.5 Neutrophils % 78.8 Lymphocytes % 11.8 Monocytes % 6.9 Eosinophils % 1.3 Basophils % 0.7 Nucleated RBC % 0.0 Absolute Neutrophils 8.26 H Absolute Lymphocytes 1.24 Absolute Monocytes 0.72 Absolute Eosinophils 0.14 Absolute Basophils 0.07 Sodium 137 Potassium 3.2 L Chloride 101 Carbon Dioxide 27.3 Anion Gap 8.7 BUN 10 Creatinine 0.8 Est GFR (CKD-EPI 2020) 100.06 Glucose 133 H Calcium 9.8 Total Bilirubin 0.6 AST 26 ALT 32 Alkaline Phosphatase 49 Total Protein 8.4 H Albumin 4.2 PFSH All Active Problems (Updated 07/06/24 @ 08:26 by Bong Tamez MD) Hypertension (Chronic) Esophageal obstruction due to food impaction (Acute) Sensorineural hearing loss of both ears (Acute) Social History Smoking/Tobacco Use Status: Never Smoking risk assessment performed?: Yes Alcohol Intake: current Alcohol Intake frequency: a few times a week Drug use: Never Substance use type: does not use Housing: house Do you feel safe at home: Yes Do you feel safe in your relationship?: Yes Time Spent with Patient Time Spent with Patient: <45 minutes Time was spent: preparing to see the patient(eg.review tests), obtaining and/or reviewing separately otained hiistory, referring, communicating with other health care center manager and indepentently interpreting results
--- NOTE | 2024-07-06 15:07 | CMPROGNOTE_ITS ---
Date of service: 07/06/24 Time of Service: 15:07 Care Management Progress Note Progress Note Text Progress Note Text: Srinivas was admitted on 07/05/24 with an esophageal obstruction. He was able to swallow the food bolus and his symptoms resolved. Srinivas remained in the hospital overnight to be observed and was discharged home this morning. He left before was able to meet with him. Discharge Potential Discharge Needs: PCP F/U Appt Anticipated Barriers to Discharge: None Identified Patient/Family Education Needs: Review discharge instructions, discuss Ask Me Three Transportation: Private vehicle Plan: Srinivas will be discharged home with no new services. He will follow up with his community providers and plan of care and transport with family. Social Determinants of Health Screening Social Determinants of health last assessed in clinic: 07/06/24 Will the Patient Participate in the Screening?: Yes Do you worry about having a steady place to live?: no Problems where you live: no known problems In the past 12 months, have you had to go without electric, gas, oil or water in your home?: no 1. Within the past 12 months, we worried whether our food would run out before we got money to buy more.: Never true 2. Within the past 12 months, the food we bought just didn't last and we didn't have money to get more.: Never true Has lack of transportation kept you from medical appointments or from doing things needed for daily living?: no Has anyone in your life made you feel unsafe or unsupported?: no How hard is it for you to pay for the very basics like food, housing, medical care, and heating? Would you say it is:: Not hard at all Do you want help finding or keeping work or a job?: I do not need or want help If for any reason you need help with day-to-day activities such as bathing, preparing meals, shopping, managing finances, etc., do you get the help you need?: I don?t need any help How often do you feel lonely or isolated from those around you?: Never Do you speak a language other than Swedish at home?: No Does the patient want assistance with any of the above?: No
== END 2024-07-06 11:08 | disposition home or self-care (01) | DRG 395 ==
LOC: ER 23:30 → MS 07-06 00:42
PROVIDERS: Admitting Provider Surgery; Emergency Provider Physician Assistant; PCP Physician Assistant Medical; Visit Provider Surgery
DX: T18.128A Food in esophagus causing other injury, initial encounter (principal); K22.2 Esophageal obstruction; W44.F3XA Food entering into or through a natural orifice, initial encounter; I10 Essential (primary) hypertension; H90.3 Sensorineural hearing loss, bilateral
CPT/HCPCS: 70491; 80053; 99285; 71260; 85025; J0330; J1610; J2704; J3490